=== PATIENT | female | born 1940 | race Caucasian/White ===

== ENCOUNTER 2016-09-12 18:02 | Emergency (ER) | payer OTHER ==
[~2016-09-12] VITALS: Ht 165.1 cm; Wt 106.2 kg
[~2016-09-12 18:02] MED LIST: ALEVE220 MG PO; ASACOL HD800 MG PO; ASCORBIC ACID500 M3 PO; AUGMENTIN875 MG PO; B COMPLETE1 EACH PO; BUPROPION HCL100 MG PO; BUPROPION HCL150 M2 PO; DAILY VITE1 EAC1 PO; ELIQUIS5 MG PO; FLAGYL500 MG PO; FUROSEMIDE20 MG PO; KLONOPIN0.5 M1 PO; KLOR-CON SPRIN10 MEQ PO; LAMOTRIGINE100 MG PO; LASIX20 MG PO; NIFEDIPINE ER60 MG PO; OMEPRAZOLE20 MG PO; POTASSIUM CHLO10 ME3 PO; PRAVASTATIN SOD40 MG PO; VITAMIN D-3 401 EACH PO
[2016-09-12 18:52] LABS: EOSINOPHIL (%) 0 % (0-5); HEMATOCRIT 37.6 % (36.0-46.0); IMMATURE GRANULOCYTE (%) 0.7 % (0.0-0.7); INSTRUMENT ABS NEUTROPHIL CT 4.3 K/uL; LYMPHOCYTE COUNT 0.9 K/uL (1.0-2.8); MCH 31.9 PG (29.0-34.0); MCHC 34.3 G/DL (30.0-36.0); MCV 93.1 FL (83-99); MEAN PLAT.VOLUME 9.7 uM^3 (9.5-12.4); MONOCYTE COUNT 0.5 K/uL (0-0.8); NEUTROPHIL COUNT 4.3 K/uL (1.8-6.4); PLATELET COUNT 224 K/uL (156-360); RBC DIS.WIDTH-CV 13.2 % (11.8-14.6); RBC DIS.WIDTH-SD 44.7 % (39-53); RED BLOOD COUNT 4.04 M/uL (3.80-5.20); WHITE BLOOD COUNT 5.7 K/uL (4.1-10.2)
[2016-09-12] MEDS ORDERED: XARELTO20 MG PO (18:59)
[2016-09-12 19:00] LABS: CHLORIDE 104 mEq/L (99-109); POTASSIUM 3.6 mEq/L (3.7-5.4); SODIUM 139 mEq/L (136-147)
[2016-09-12 19:01] LABS: GLUCOSE 118 mg/dL (70-99)
[2016-09-12 19:03] LABS: ANION GAP 11 MEQ/L (2-14)
[2016-09-12 19:05] LABS: GFR ESTIMATE (CALCULATED) > 59 mL/min/
[2016-09-12 19:06] LABS: UREA NITROGEN (BUN) 19 mg/dL (9-23)
[2016-09-12 19:12] LABS: TROP-I INTERPRETATION NEGATIVE; TROPONIN-I < 0.01 ng/mL (0.0-0.30)
[2016-09-12 19:50] VITALS: BP 142/67
== END 2016-09-12 19:52 | disposition home or self-care (01) ==
LOC: EME 18:02
PROVIDERS: Emergency Medicine
DX: R06.02 Shortness of breath (principal); I50.9 Heart failure, unspecified; E87.70 Fluid overload, unspecified; E78.5 Hyperlipidemia, unspecified; I10 Essential (primary) hypertension; K21.9 Gastro-esophageal reflux disease without esophagitis; Z86.711 Personal history of pulmonary embolism; Z96.641 Presence of right artificial hip joint
CPT/HCPCS: 71010; 80048; 83880; 84484; 85025; 93005; 99281; 99284

== ENCOUNTER 2016-10-09 19:38 | Observation (INO) | payer OTHER ==
[~2016-10-09] VITALS: Ht 165.1 cm; Wt 101.2 kg
[~2016-10-09 19:38] MED LIST changes: +XARELTO20 MG PO
[2016-10-09 20:10] LABS: HEMATOCRIT 39.2 % (36.0-46.0); MCH 32.2 PG (29.0-34.0); MCHC 34.9 G/DL (30.0-36.0); MEAN PLAT.VOLUME 9.6 uM^3 (9.5-12.4); PLATELET COUNT 253 K/uL (156-360); RBC DIS.WIDTH-CV 12.9 % (11.8-14.6); RBC DIS.WIDTH-SD 43.2 % (39-53); RED BLOOD COUNT 4.26 M/uL (3.80-5.20)
[2016-10-09 20:28] LABS: CHLORIDE 101 mEq/L (99-109); POTASSIUM 3.6 mEq/L (3.7-5.4); SODIUM 140 mEq/L (136-147)
[2016-10-09 20:29] LABS: GLUCOSE 164 mg/dL (70-99)
[2016-10-09 20:31] LABS: ANION GAP 12 MEQ/L (2-14)
[2016-10-09 20:35] LABS: GFR ESTIMATE (CALCULATED) 57 mL/min/; UREA NITROGEN (BUN) 21 mg/dL (9-23)
[2016-10-09 20:38] LABS: TROP-I INTERPRETATION NEGATIVE; TROPONIN-I 0.01 ng/mL (0.0-0.30)
[2016-10-09 21:07] LABS: D-DIMER ELISA 0.85 mg/L FEU (< 0.57)
[2016-10-09 21:19] LABS: TOTAL BILIRUBIN 0.5 mg/dL (0.0-1.0)
[2016-10-09 21:20] LABS: ALKALINE PHOSPHATASE 90 IU/L (3-129)
[2016-10-09 21:22] LABS: DIRECT BILIRUBIN 0.2 mg/dL (0.0-0.3)
[2016-10-09 21:23] LABS: LIPASE 36 U/L (1.0-51.0)
[2016-10-09] MEDS ORDERED: BUMEX2 MG PO (23:39)
[2016-10-10 03:09] VITALS: BP 137/61
[2016-10-10 03:54] LABS: TROP-I INTERPRETATION NEGATIVE; TROPONIN-I < 0.01 ng/mL (0.0-0.30)
[2016-10-10 07:16] VITALS: BP 134/60
[2016-10-10 10:31] LABS: TROP-I INTERPRETATION NEGATIVE; TROPONIN-I < 0.01 ng/mL (0.0-0.30)
[2016-10-10 12:32] VITALS: BP 121/60
[2016-10-10] MEDS ORDERED: IBUPROFEN400 MG PO (12:53)
[2016-10-10] MEDS ORDERED: ROBITUSSIN100 MG/5 M PO (13:10)
== END 2016-10-10 14:34 | disposition home or self-care (01) ==
LOC: EME 19:38 → EDOF 10-10 01:48 → 5WEST 10-10 02:45
PROVIDERS: Internal Medicine
DX: J20.9 Acute bronchitis, unspecified (principal); I11.0 Hypertensive heart disease with heart failure; I50.9 Heart failure, unspecified; R07.9 Chest pain, unspecified; E78.5 Hyperlipidemia, unspecified; I35.0 Nonrheumatic aortic (valve) stenosis; F41.9 Anxiety disorder, unspecified; F31.9 Bipolar disorder, unspecified; Z86.711 Personal history of pulmonary embolism; Z79.01 Long term (current) use of anticoagulants; G43.909 Migraine, unspecified, not intractable, without status migrainosus; Z96.641 Presence of right artificial hip joint; E66.9 Obesity, unspecified; E04.1 Nontoxic single thyroid nodule
CPT/HCPCS: 71020; 71275; 80048; 80076; 83690; 84484; 85027; 85379; 93005; 94640; 94640 76; 94760; 99202; 99281; 99285; G0378; J1956; J2270; J2405